=== PATIENT | female | born 1985 | race Native Hawaiian/Other Pacific Islander ===

== ENCOUNTER 2017-01-09 07:48 | Outpatient (CLI) | payer BC ==
[2017-01-09 09:06] LABS: HIV-1 Antigen p24 Non React (Non React); HIVR-1/2 Ab Non React (Non React)
== END 2017-01-09 07:49 | disposition home or self-care (01) ==
LOC: LAB 07:48
PROVIDERS: ATTEND Obstetrics & Gynecology
DX: Z11.3 Encounter for screening for infections with a predominantly sexual mode of transmission (principal); E66.9 Obesity, unspecified; E28.2 Polycystic ovarian syndrome
CPT/HCPCS: 36415; 80061; 83036; 86592; 86706; 86803; 87806

== ENCOUNTER 2018-03-09 07:54 | Outpatient (CLI) | payer BC, MEDICAID ==
[2018-03-09 09:42] LABS: Hepatitis B Surface Antigen Non-Reactive (Negative); Hepatitis C Virus Antibody Non-Reactive (NonReactive)
[2018-03-09 09:43] LABS: Hepatitis B Core IgM Non-Reactive (NonReactive)
[2018-03-11 07:44] LABS: Hepatitis A Antibody IgM NonReactive (NonReactive)
== END 2018-03-09 07:55 | disposition home or self-care (01) ==
LOC: LAB 07:54
PROVIDERS: ATTEND Obstetrics & Gynecology
DX: Z01.419 Encounter for gynecological examination (general) (routine) without abnormal findings (principal); A64 Unspecified sexually transmitted disease
CPT/HCPCS: 36415; 80074; 86592; 87086; 87529; 87806

== ENCOUNTER 2019-04-26 06:22 | Outpatient (CLI) | payer BC ==
[2019-04-26 14:24] LABS: Hepatitis C Virus Antibody Non-Reactive (NonReactive)
[2019-05-03 05:58] LABS: HIV-1 Antibody Differentiation SEE SCANNED RESULT; HIV-2 Antibody Differentiation SEE SCANNED RESULT
== END 2019-04-26 06:23 | disposition home or self-care (01) ==
LOC: LAB 06:22
PROVIDERS: ATTEND Nurse Practitioner Women's Health
DX: Z11.3 Encounter for screening for infections with a predominantly sexual mode of transmission (principal)
CPT/HCPCS: 36415; 86592; 86689; 86706; 86803

== ENCOUNTER 2019-08-11 17:05 | Inpatient (IN) | payer BC ==
--- NOTE | 2019-08-11 17:19 | Emergency Department Report ---
Blank Doc - Documentation Documentation: 34-year-old female that presents with abdominal pain in the epigastric. This initial assessment/diagnostic orders/clinical plan/treatment(s) is/are subject to change based on patient's health status, clinical progression and re- assessment by fellow clinical providers in the ED. Further treatment and workup at subsequent clinical providers discretion. Patient/guardians urged not to elope from the ED as their condition may be serious if not clinically assessed and managed. Initial orders include: 1- Patient sent to [facility] for further evaluation and treatment 2- labs 3- UA
[2019-08-11 17:44] LABS: Basophils # (Auto) 0.1 K/mm3 (0.0-0.1); Basophils % (Auto) 0.6 % (0.0-1.8); Eosinophils # (Auto) 0.1 K/mm3 (0.0-0.4); Eosinophils % (Auto) 0.7 % (0.0-4.3); Hematocrit 43.7 % (30.3-42.9); Hemoglobin 14.4 gm/dl (10.1-14.3); Lymphocytes # (Auto) 2.4 K/mm3 (1.2-5.4); Lymphocytes % (Auto) 18.5 % (13.4-35.0); Mean Corpuscular HGB Conc 33 % (30-34); Mean Corpuscular Volume 90 fl (79-97); Monocytes # (Auto) 0.7 K/mm3 (0.0-0.8); Monocytes % (Auto) 5.4 % (0.0-7.3); Platelet Count 238 K/mm3 (140-440); Red Blood Count 4.87 M/mm3 (3.65-5.03); Red Cell Distribution Width 13.6 % (13.2-15.2)
[2019-08-11 18:05] LABS: Alanine Aminotransferase 9 units/L (7-56); Albumin 4.9 g/dL (3.9-5); BUN/Creatinine Ratio 12; Blood Urea Nitrogen 7 mg/dL (7-17); Calcium 9.8 mg/dL (8.4-10.2); Hemolysis Index 5
[2019-08-11] MEDS ORDERED: ONDANSETRON 4 MG/2 ML INJ IV ONE (18:14)
[2019-08-11] MEDS ORDERED: MORPHINE 4 MG/1 ML INJ IV ONE ×2 (18:14→21:34)
[2019-08-11] MEDS ORDERED: SODIUM CHLORIDE 0.9% 1000 ML 1,000 ML IV ONE (18:14)
--- NOTE | 2019-08-11 19:22 | Cat Scan Report ---
CT ABDOMEN AND PELVIS WITH CONTRAST INDICATION: Epigastric pain with nausea and leukocytosis. COMPARISON: No relevant prior imaging study available. TECHNIQUE: Axial, coronal and sagittal CT imaging of the abdomen and pelvis was performed after inje ction of 100 cc Omnipaque [address] scans at this location are performed using CT dose re duction for ALARA by means of automated exposure control. FINDINGS: LOWER CHEST: No significant abnormality. LIVER: No significant abnormality. BILIARY: No significant abnormality. PANCREAS: No significant abnormality. SPLEEN: No significant abnormality. ADRENALS: No significant abnormality. KIDNEYS AND URETERS: No significant abnormality. GI TRACT: There is moderate distention of the stomach by fluid without an additional distinct abnorma lity. The distal small bowel is mildly dilated and fluid-filled without thickening or surrounding inf lammation. No significant abnormality of the colon. Unremarkable appendix. PERITONEUM: Trace amount of free fluid along the pelvis. No free air. No fluid collection. LYMPH NODES: No significant adenopathy. VASCULATURE: No significant abnormality. URINARY BLADDER: No significant abnormality. REPRODUCTIVE ORGANS: No significant abnormality. ADDITIONAL FINDINGS: None. SKELETAL SYSTEM: No significant abnormality. IMPRESSION: 1. Nonspecific moderate distention of the stomach may represent gastric outlet obstruction, possibly from a stricture or other functional abnormality. No distinct mass is identified. An upper GI series and/or endoscopy may be helpful for further evaluation. 2. Possible enteritis without an associated complications. Signer Name: Jake Zamorano MD Signed: 08/11/2019 7:18 PM Workstation Name: [id number]
--- NOTE | 2019-08-11 19:57 | Emergency Department Report ---
ED Abdominal Pain HPI - General Chief Complaint: Abdominal Pain Stated Complaint: ABD PAIN Time Seen by Provider: 08/11/19 17:17 Source: patient Mode of arrival: Ambulatory Limitations: No Limitations - History of Present Illness Initial Comments: Patient is a 34-year-old female presents emergency room with complaints of epigastric abdominal pain that began suddenly at 2 PM today. She has associated nausea. She denies ever having this in the past. She denies any history of gallstones. She denies any vomiting, diarrhea, urinary symptoms, fever. She denies any past medical history. She denies any allergies to medications. She states that her menstrual cycle was 3 weeks ago. Severity scale (0 -10): 10 - Related Data Home Medications Medication Instructions Recorded Confirmed Last Taken Norethindrone-E.estradiol-Iron [Lo 1 each PO QDAY 08/08/15 08/08/15 08/07/15 18:00 Loestrin Fe 1-10 Tablet] Previous Rx's Medication Instructions Recorded Last Taken Type Ciprofloxacin HCl [Ciprofloxacin 500 mg PO Q12HR #28 tab 08/08/15 Unknown Rx TAB] Ibuprofen [Motrin 800 MG tab] 800 mg PO Q8HR PRN #30 tablet 08/08/15 Unknown Rx Allergies Allergy/AdvReac Type Severity Reaction Status Date / Time No Known Allergies Allergy Verified 08/08/15 09:23 ED Review of Systems ROS: Stated complaint: ABD PAIN Other details as noted in HPI Comment: All other systems reviewed and negative ED Past Medical Hx - Past Medical History Hx Hypertension: No Hx Congestive Heart Failure: No Hx Diabetes: No Hx Deep Vein Thrombosis: No Hx Renal Disease: No Hx Sickle Cell Disease: No Hx Seizures: No Hx Asthma: No Hx COPD: No Hx HIV: No Additional medical history: ANEMIA WITH - Surgical History Past Surgical History?: No - Social History Smoking Status: Never Smoker Substance Use Type: None - Medications Home Medications: Home Medications Medication Instructions Recorded Confirmed Last Taken Type Ciprofloxacin HCl [Ciprofloxacin 500 mg PO Q12HR #28 tab 08/08/15 Unknown Rx TAB] Ibuprofen [Motrin 800 MG tab] 800 mg PO Q8HR PRN #30 tablet 08/08/15 Unknown Rx Norethindrone-E.estradiol-Iron [Lo 1 each PO QDAY 08/08/15 08/08/15 08/07/15 18:00 History Loestrin Fe 1-10 Tablet] ED Physical Exam - General Limitations: No Limitations General appearance: alert, other (appears to be in moderate distress secondary to pain) - Head Head exam: Present: atraumatic, normocephalic - Eye Eye exam: Present: normal appearance - ENT ENT exam: Present: mucous membranes moist - Respiratory Respiratory exam: Present: normal lung sounds bilaterally. Absent: respiratory distress, wheezes, rales, rhonchi, stridor, chest wall tenderness, accessory muscle use, decreased breath sounds, prolonged expiratory - Cardiovascular Cardiovascular Exam: Present: regular rate, normal rhythm, normal heart sounds. Absent: systolic murmur, diastolic murmur, rubs, gallop - GI/Abdominal GI/Abdominal exam: Present: soft, tenderness (epigastric), other (negative murphys sign, negative mcburneys point tenderness, no haro ma or cullens sign). Absent: distended, guarding, rebound, rigid - Back Exam Back exam: Absent: CVA tenderness (R), CVA tenderness (L) - Neurological Exam Neurological exam: Present: alert, oriented X3 - Psychiatric Psychiatric exam: Present: normal affect, normal mood - Skin Skin exam: Present: warm, dry, intact ED Course Vital Signs 08/11/19 08/11/19 17:17 18:45 Temperature 98.2 F Pulse Rate 104 H Respiratory 24 18 Rate Blood Pressure 128/80 - Consultations Consultation #1: 08/11/19 20:[address] Allen, GI regarding patient history and CT results, he advised if patient's pain was better and she was able to tolerate p.o. intake and can follow-up as an outpatient, he states that the patient was not able to tolerate p.o. intake and was not feeling better and can start patient on a PPI keep her n.p.o. and will see patient in the morning. 08/11/19 21:35 Patient given crackers and water and states that she felt like the pain was returning, patient given pain medications and PPI, discussed case with Dr. English, ER attending recommended doing cardiac enzyme and EKG and admit patient to hospitalist service 08/11/19 21:[address] Ac, hospitalist who will accept and resume care of patient will admit to the hospital ED Medical Decision Making - Lab Data Result diagrams: 08/11/19 17:27 08/11/19 17:27 Labs 08/11/19 08/11/19 08/11/19 17:27 17:27 17:27 WBC 13.0 H RBC 4.87 Hgb 14.4 H Hct 43.7 H MCV 90 MCH 30 MCHC 33 RDW 13.6 Plt Count 238 Lymph % (Auto) 18.5 [place] % (Auto) 5.4 Eos % (Auto) 0.7 Baso % (Auto) 0.6 Lymph # 2.4 [place] # 0.7 Eos # 0.1 Baso # 0.1 Seg Neutrophils % 74.8 H Seg Neutrophils # 9.7 H Sodium 136 L Potassium 3.7 Chloride 95.8 L Carbon Dioxide 21 L Anion Gap 23 BUN 7 Creatinine 0.6 L Estimated GFR > 60 BUN/Creatinine Ratio 12 Glucose 112 H Calcium 9.8 Total Bilirubin 0.30 AST 16 ALT 9 Alkaline Phosphatase 63 Troponin T Total Protein 8.1 Albumin 4.9 Albumin/Globulin Ratio 1.5 Lipase 19 HCG, Qual Negative Urine Color Urine Turbidity Urine pH Ur Specific [place] Urine Protein Urine Glucose (UA) Urine Ketones Urine Blood Urine Nitrite Urine Bilirubin Urine Urobilinogen Ur Leukocyte Esterase Urine WBC (Auto) Urine RBC (Auto) U Epithel Cells (Auto) Urine Bacteria (Auto) Urine Mucus 08/11/19 08/11/19 19:47 21:35 WBC RBC Hgb Hct MCV MCH MCHC RDW Plt Count Lymph % (Auto) [place] % (Auto) Eos % (Auto) Baso % (Auto) Lymph # [place] # Eos # Baso # Seg Neutrophils % Seg Neutrophils # Sodium Potassium Chloride Carbon Dioxide Anion Gap BUN Creatinine Estimated GFR BUN/Creatinine Ratio Glucose Calcium Total Bilirubin AST ALT Alkaline Phosphatase Troponin T < 0.010 Total Protein Albumin Albumin/Globulin Ratio Lipase HCG, Qual Urine Color Yellow Urine Turbidity Clear Urine pH 6.0 Ur Specific [place] 1.016 Urine Protein <15 mg/dl Urine Glucose (UA) Neg Urine Ketones 20 Urine Blood Neg Urine Nitrite Neg Urine Bilirubin Neg Urine Urobilinogen < 2.0 Ur Leukocyte Esterase Neg Urine WBC (Auto) 2.0 Urine RBC (Auto) 2.0 U Epithel Cells (Auto) 7.0 Urine Bacteria (Auto) 1+ Urine Mucus 1+ - EKG Data EKG shows normal: sinus rhythm, axis, intervals, QRS complexes, ST-T waves Rate: normal - EKG Data 08/11/19 23:55 no STEMI - Radiology Data Radiology results: report reviewed CT ABDOMEN AND PELVIS WITH CONTRAST INDICATION: Epigastric pain with nausea and leukocytosis. COMPARISON: No relevant prior imaging study available. TECHNIQUE: Axial, coronal and sagittal CT imaging of the abdomen and pelvis was performed after injection of 100 cc Omnipaque [address] scans at this location are performed using CT dose reduction for ALARA by means of automated exposure control. FINDINGS: LOWER CHEST: No significant abnormality. LIVER: No significant abnormality. BILIARY: No significant abnormality. PANCREAS: No significant abnormality. SPLEEN: No significant abnormality. ADRENALS: No significant abnormality. KIDNEYS AND URETERS: No significant abnormality. GI TRACT: There is moderate distention of the stomach by fluid without an additional distinct abnormality. The distal small bowel is mildly dilated and fluid-filled without thickening or surrounding inflammation. No significant abnormality of the colon. Unremarkable appendix. PERITONEUM: Trace amount of free fluid along the pelvis. No free air. No fluid collection. LYMPH NODES: No significant adenopathy. VASCULATURE: No significant abnormality. URINARY BLADDER: No significant abnormality. REPRODUCTIVE ORGANS: No significant abnormality. ADDITIONAL FINDINGS: None. SKELETAL SYSTEM: No significant abnormality. IMPRESSION: 1. Nonspecific moderate distention of the stomach may represent gastric outlet obstruction, possibly from a stricture or other functional abnormality. No distinct mass is identified. An upper GI series and/or endoscopy may be helpful for further evaluation. 2. Possible enteritis without an associated complications. Signer Name: Jake Zamorano MD Signed: 08/11/2019 7:18 PM Workstation Name: [id number] Transcribed By: [place] Dictated By: Jake Zamorano MD Electronically Authenticated By: Jake Zamorano MD Signed Date/Time: 08/11/191917 DD/ 13 TD/TT: - Medical Decision Making Patient is a 34-year-old female presents emergency room with complaints of epiga stric abdominal pain that began suddenly at 2 PM today. She has associated nausea. She denies ever having this in the past. She denies any history of gallstones. She denies any vomiting, diarrhea, urinary symptoms, fever. She denies any past medical history. She denies any allergies to medications. She states that her menstrual cycle was 3 weeks ago. Vitals with mild tachycardia otherwise normal. On exam patient has epigastric tenderness to palpation, no guarding, no rebound, negative Emery sign, no McBurney's point tenderness, negative Haro Ma's and [place] sign. Labs significant for elevated white blood cell count at 13,000 and very mild dehydration, negative troponin, EKG WN L. CT abd pelvis: 1. Nonspecific moderate distention of the stomach may represent gastric outlet obstruction, possibly from a stricture or other functional abnormality. No distinct mass is identified. An upper GI series and/or endoscopy may be helpful for further evaluation. 2. Possible enteritis w ithout an associated complications. Patient given 1 L IV fluids, morphine, Zofran. spoke to Dr. Allen, GI regarding patient history and CT results, he advised if patient's pain was better and she was able to tolerate p.o. intake and can follow-up as an outpatient, he states that the patient was not able to tolerate p.o. intake and was not feeling better and can start patient on a PPI keep her n.p.o. and will see patient in the morning. Patient given crackers and water and states that she felt like the pain was returning, patient given pain medications and PPI, discussed case with Dr. English, ER attending recommended doing cardiac enzyme and EKG and admit patient to hospitalist service. spoke to Dr. Ac, hospitalist who will accept and resume care of patient will admit to the hospital - Differential Diagnosis Cholelithiasis, cholecystitis, pancreatitis, SBO, gastritis, PUD, mass Critical care attestation.: If time is entered above; I have spent that time in minutes in the direct care of this critically ill patient, excluding procedure time. ED Disposition Clinical Impression: Acute distention of stomach Abdominal pain Qualifiers: Abdominal location: epigastric Qualified Code(s): R10.13 - Epigastric pain Leukocytosis Qualifiers: Leukocytosis type: unspecified Qualified Code(s): D72.829 - Elevated white blood cell count, unspecified Disposition: OP ADMIT IP TO THIS HOSP Is pt being admited?: Yes Does the pt Need Aspirin: No Condition: Fair Time of Disposition: 21:39
[2019-08-11 20:08] LABS: Bacteria,Urine 1+ /HPF (Negative); Bilirubin,Urine NEG (Negative); Blood,Urine NEG (Negative); Color,Urine Yellow (Yellow); Mucus,Urine 1+ /HPF; Protein,Urine <15 mg/dL mg/dL (Negative); Urobilinogen,Urine < 2.0 mg/dL (<2.0)
[2019-08-11] MEDS ORDERED: PANTOPRAZOLE 40 MG INJ IV ONE (21:34)
[2019-08-11] MEDS ORDERED: METOCLOPRAMIDE 10 MG/2 ML INJ IV PRN (22:15)
[2019-08-11] MEDS ORDERED: ACETAMINOPHEN 325 MG TAB PO PRN (22:15)
[2019-08-11] MEDS ORDERED: MORPHINE 2 MG/1 ML INJ IV PRN (22:15)
[2019-08-11] MEDS ORDERED: ONDANSETRON 4 MG/2 ML INJ IV PRN (22:15)
--- NOTE | 2019-08-11 22:21 | History and Physical Report ---
History of Present Illness History of present illness: 34-year-old male with no medical problem comes emergency room with complaints of abdominal pain that started today. Pain is in the epigastric area which he describes as a sharp pain, constant, intensity 6/10, no radiation, cannot identify exacerbating factor, relieved with morphine given in the emergency room. Admits to nausea, no vomiting, no fever or chills. Imaging study shows moderate distention of the stomach for which the patient will be admitted for Review Of Systems: Constitutional: no weight loss, fever, chills Ears, eyes, nose, mouth and throat: no nasal congestion, no nasal discharge, no sinus pressure, blurry vision, diplopia Neck: No neck pain or rigidity. Cardiovascular: No palpitations, chest pain Respiratory: No shortness of breath, cough Gastrointestinal: No hematochezia Genitourinary : no dysuria, frequency Musculoskeletal: no muscle ache , joint pain Integumentary: no rash, no pruritis Neurological: no parathesias, focal weakness Endocrine: no cold or heat intolerance, no polyuria or polydipsia Hematologic/Lymphatic: no easy bruising, no easy bleeding, no gland swelling Allergic/Immunologic: no urticaria, no angioedema. M PAST MEDICAL HISTORY: None PAST SURGICAL HISTORY:None SOCIAL HISTORY: Denies alcohol, tobacco, drugs FAMILY HISTORY: Hypertension Medications and Allergies Allergies Allergy/AdvReac Type Severity Reaction Status Date / Time No Known Allergies Allergy Verified 08/08/15 09:23 Home Medications Medication Instructions Recorded Confirmed Last Taken Type Ciprofloxacin HCl [Ciprofloxacin 500 mg PO Q12HR #28 tab 08/08/15 Unknown Rx TAB] Ibuprofen [Motrin 800 MG tab] 800 mg PO Q8HR PRN #30 tablet 08/08/15 Unknown Rx Norethindrone-E.estradiol-Iron [Lo 1 each PO QDAY 08/08/15 08/08/15 08/07/15 18:00 History Loestrin Fe 1-10 Tablet] Exam - Physical Exam Narrative exam: Gen. appearance: Patient lying in bed, no apparent distress HEENT: Normocephalic, atraumatic, pupils equally round and reactive to light, extraocular movement intact, and no sclericterus,. No JVD or thyromegaly or nodule,neck supple, no carotid bruit ,mucous membranes moist, no exudate or erythema Heart: S1, S2, regular rate and rhythm Lungs: Clear bilaterally, breathing comfortable Abdomen: Positive bowel sounds, nontender, nondistended, no organomegaly Extremity: no edema, cyanosis, clubbing Skin: No rash, nodules, warm, dry Neuro: Cranial nerves II to XII intact speech is fluent, moves extremities, sensory intact - Constitutional Vitals: Temp Pulse Resp BP Pulse Ox 98.2 F 104 H 18 128/80 08/11/19 17:17 08/11/19 17:17 08/11/19 18:45 08/11/19 17:17 Results - Labs CBC & Chem 7: 08/11/19 17:27 08/11/19 17:27 Labs: Abnormal lab results 08/11/19 08/11/19 Range/Units 17:27 17:27 WBC 13.0 H (4.5-11.0) K/mm3 Hgb 14.4 H (10.1-14.3) gm/dl Hct 43.7 H (30.3-42.9) % Seg Neutrophils % 74.8 H (40.0-70.0) % Seg Neutrophils # 9.7 H (1.8-7.7) K/mm3 Sodium 136 L (137-145) mmol/L Chloride 95.8 L (98-107) mmol/L Carbon Dioxide 21 L (22-30) mmol/L Creatinine 0.6 L (0.7-1.2) mg/dL Glucose 112 H (65-100) mg/dL - Imaging and Cardiology EKG: image reviewed CT scan - abdomen: report reviewed CT scan - pelvis: report reviewed Assessment and Plan Assessment Moderate distention of the stomach Admit to medicine, n.p.o., GI was consulted to see the patient Start IV fluid, Protonix, morphine, DVT prophylaxis Stress-induced leukocytosis, observe
[2019-08-12] MEDS: SODIUM CHLORIDE 0.9% 1000 ML 1,000 ML IV SCH (03:20)
[2019-08-12 07:49] LABS: Basophils % (Auto) 0.4 % (0.0-1.8); Eosinophils # (Auto) 0.1 K/mm3 (0.0-0.4); Eosinophils % (Auto) 1.6 % (0.0-4.3); Hematocrit 37.9 % (30.3-42.9); Hemoglobin 12.8 gm/dl (10.1-14.3); Lymphocytes # (Auto) 2.5 K/mm3 (1.2-5.4); Lymphocytes % (Auto) 31.4 % (13.4-35.0); Mean Corpuscular HGB Conc 34 % (30-34); Mean Corpuscular Volume 89 fl (79-97); Monocytes # (Auto) 0.6 K/mm3 (0.0-0.8); Monocytes % (Auto) 7.1 % (0.0-7.3); Platelet Count 199 K/mm3 (140-440); Red Blood Count 4.28 M/mm3 (3.65-5.03); Red Cell Distribution Width 13.6 % (13.2-15.2)
[2019-08-12 08:07] LABS: BUN/Creatinine Ratio 8; Blood Urea Nitrogen 5 mg/dL (7-17); Calcium 8.4 mg/dL (8.4-10.2); Hemolysis Index 1
--- NOTE | 2019-08-12 09:20 | Gastroenterology Consultation ---
History of Present Illness - Reason for Consult Consult date: 08/12/19 abd pain/distention Requesting physician: AMISHA RUSHING - History of Present Illness Patient is a 34 y/o female with no significant PMH who presented to ED with c/o acute onset of epigastric pain with nausea. Upon admission, abd CT showed possible GOO to which GI has been consulted. This morning patient was resting in bed w/o acute distress. Reports feeling better. Denies fever, CP, SOB, wt loss, vomiting, signs of bleeding, diarrhea, or constipation. Last BM yesterday with loose non-bloody stool. No hx of similar symptoms. No known ill contacts. Takes Ibuprofen rarely at home. No hx of PUD or prior EGD. No Fhx of GI cancers. Past History Past Medical History: other (anemia with ) Past Surgical History: No surgical history Social history: denies: smoking, alcohol abuse Family history: hypertension Medications and Allergies Allergies Allergy/AdvReac Type Severity Reaction Status Date / Time No Known Allergies Allergy Verified 08/08/15 09:23 Home Medications Medication Instructions Recorded Confirmed Last Taken Type Ciprofloxacin HCl [Ciprofloxacin 500 mg PO Q12HR #28 tab 08/08/15 Unknown Rx TAB] Ibuprofen [Motrin 800 MG tab] 800 mg PO Q8HR PRN #30 tablet 08/08/15 Unknown Rx Norethindrone-E.estradiol-Iron [Lo 1 each PO QDAY 08/08/15 08/12/19 1 Day Ago History Loestrin Fe 1-10 Tablet] ~08/11/19 Active Meds: Active Medications Acetaminophen (Tylenol) 650 mg PO Q4H PRN PRN Reason: Pain MILD(1-3)/Fever >100.5/SAUNDERS Enoxaparin Sodium (Enoxaparin) 40 mg SUB-Q QDAY@1000 ANDRADE Sodium Chloride (Nacl 0.9% 1000 Ml) 1,000 mls @ 100 mls/hr IV DIRECT ANDRADE Last Admin: 08/12/19 03:20 Dose: 100 mls/hr Documented by: Metoclopramide HCl (Reglan) 10 mg IV Q6H PRN PRN Reason: Nausea And Vomiting Morphine Sulfate (Morphine) 2 mg IV Q4H PRN PRN Reason: Pain, Moderate (4-6) Ondansetron HCl (Zofran) 4 mg IV Q4H PRN PRN Reason: Nausea And Vomiting Pantoprazole Sodium (Protonix) 40 mg IV QDAY ANDRADE Sodium Chloride (Sodium Chloride Flush Syringe 10 Ml) 10 ml IV BID ANDRADE Sodium Chloride (Sodium Chloride Flush Syringe 10 Ml) 10 ml IV PRN PRN PRN Reason: LINE FLUSH medications reviewed/updated as required Review of Systems - Review of Systems All systems: negative Gastrointestinal: abdominal pain (epigastric pain), nausea Exam - Constitutional Vital Signs: Temp Pulse Resp BP Pulse Ox 98.3 F 59 L 16 89/44 99 08/12/19 05:44 08/12/19 05:44 08/12/19 05:44 08/12/19 05:44 08/12/19 05:44 General appearance: no acute distress - EENT Eyes: PERRL, EOM intact ENT: hearing intact - Respiratory Respiratory effort: normal Respiratory: bilateral: CTA - Cardiovascular Rhythm: regular - Gastrointestinal General gastrointestinal: Present: soft, non-tender, non-distended, normal bowel sounds - Integumentary Integumentary: Present: warm, dry - Neurologic Neurological: alert and oriented x3 - Labs CBC & Chem 7: 08/12/19 07:32 08/12/19 07:32 Lab Results: Laboratory Results - last 24 hr 08/11/19 08/11/19 08/11/19 17:27 17:27 17:27 WBC 13.0 H RBC 4.87 Hgb 14.4 H Hct 43.7 H MCV 90 MCH 30 MCHC 33 RDW 13.6 Plt Count 238 Lymph % (Auto) 18.5 [place] % (Auto) 5.4 Eos % (Auto) 0.7 Baso % (Auto) 0.6 Lymph # 2.4 [place] # 0.7 Eos # 0.1 Baso # 0.1 Seg Neutrophils % 74.8 H Seg Neutrophils # 9.7 H Sodium 136 L Potassium 3.7 Chloride 95.8 L Carbon Dioxide 21 L Anion Gap 23 BUN 7 Creatinine 0.6 L Estimated GFR > 60 BUN/Creatinine Ratio 12 Glucose 112 H Calcium 9.8 Total Bilirubin 0.30 AST 16 ALT 9 Alkaline Phosphatase 63 Troponin T Total Protein 8.1 Albumin 4.9 Albumin/Globulin Ratio 1.5 Lipase 19 HCG, Qual Negative Urine Color Urine Turbidity Urine pH Ur Specific [place] Urine Protein Urine Glucose (UA) Urine Ketones Urine Blood Urine Nitrite Urine Bilirubin Urine Urobilinogen Ur Leukocyte Esterase Urine WBC (Auto) Urine RBC (Auto) U Epithel Cells (Auto) Urine Bacteria (Auto) Urine Mucus 08/11/19 08/11/19 08/12/19 19:47 21:35 07:32 WBC 7.9 RBC 4.28 Hgb 12.8 Hct 37.9 MCV 89 MCH 30 MCHC 34 RDW 13.6 Plt Count 199 Lymph % (Auto) 31.4 [place] % (Auto) 7.1 Eos % (Auto) 1.6 Baso % (Auto) 0.4 Lymph # 2.5 [place] # 0.6 Eos # 0.1 Baso # 0.0 Seg Neutrophils % 59.5 Seg Neutrophils # 4.7 Sodium Potassium Chloride Carbon Dioxide Anion Gap BUN Creatinine Estimated GFR BUN/Creatinine Ratio Glucose Calcium Total Bilirubin AST ALT Alkaline Phosphatase Troponin T < 0.010 Total Protein Albumin Albumin/Globulin Ratio Lipase HCG, Qual Urine Color Yellow Urine Turbidity Clear Urine pH 6.0 Ur Specific [place] 1.016 Urine Protein <15 mg/dl Urine Glucose (UA) Neg Urine Ketones 20 Urine Blood Neg Urine Nitrite Neg Urine Bilirubin Neg Urine Urobilinogen < 2.0 Ur Leukocyte Esterase Neg Urine WBC (Auto) 2.0 Urine RBC (Auto) 2.0 U Epithel Cells (Auto) 7.0 Urine Bacteria (Auto) 1+ Urine Mucus 1+ 08/12/19 07:32 WBC RBC Hgb Hct MCV MCH MCHC RDW Plt Count Lymph % (Auto) [place] % (Auto) Eos % (Auto) Baso % (Auto) Lymph # [place] # Eos # Baso # Seg Neutrophils % Seg Neutrophils # Sodium 141 Potassium 4.1 Chloride 106.0 Carbon Dioxide 22 Anion Gap 17 BUN 5 L Creatinine 0.6 L Estimated GFR > 60 BUN/Creatinine Ratio 8 Glucose 83 Calcium 8.4 Total Bilirubin AST ALT Alkaline Phosphatase Troponin T Total Protein Albumin Albumin/Globulin Ratio Lipase HCG, Qual Urine Color Urine Turbidity Urine pH Ur Specific [place] Urine Protein Urine Glucose (UA) Urine Ketones Urine Blood Urine Nitrite Urine Bilirubin Urine Urobilinogen Ur Leukocyte Esterase Urine WBC (Auto) Urine RBC (Auto) U Epithel Cells (Auto) Urine Bacteria (Auto) Urine Mucus Assessment and Plan 1.epigastric pain 2.nausea 3.abnormal CT/GOO? -afebrile -WBC now WNL (13.0 on admission) -H/H, plt, LFTs, and lipase WNL -abd CT showed moderate distension of the stomach which could represent gastric outlet obstruction but no obvious mass -etiology- 2/2 possible acute viral/infectious process vs PUD vs other -clinically, patient reports feeling better with abd pain improving. Has nausea but no vomiting or signs of bleeding. Abdomen benign upon exam. -EGD for further evaluation once acute process has improved, if symptoms resolve with conservative management and able to tolerate PO, can be done as outpatient -Keep NPO for now except ice chips -if vomiting develops, recommend NGT to [facility] -KUB in am -PPI -empiric antibiotics -avoid NSAIDs -supportive care -will follow
[2019-08-12] MEDS ORDERED: ENOXAPARIN 30 MG/0.3 ML INJ SUB-Q SCH (10:00)
[2019-08-12] MEDS ORDERED: PANTOPRAZOLE 40 MG INJ IV SCH (10:00)
[2019-08-12] MEDS: ENOXAPARIN 40 MG/0.4 ML INJ SUB-Q SCH (10:22)
--- NOTE | 2019-08-12 19:55 | Progress Note ---
Assessment and Plan - Patient Problems (1) Abdominal pain Current Visit: Yes Status: Acute Qualifiers: Abdominal location: epigastric Qualified Code(s): R10.13 - Epigastric pain Plan to address problem: Abdominal pain. Patient CT scan showed questionable gastric outlet obstruction. Patient did have loose stool no pain. Patient had no fever at this particular time no bleeding. Abdomen benign with palpation on physical exam. Agree most likely viral illness. Bowel rest today ice chips would begin clear liquid diet if she tolerates. Follow-up in a.m. (2) Leukocytosis Current Visit: Yes Status: Acute Qualifiers: Leukocytosis type: unspecified Qualified Code(s): D72.829 - Elevated white blood cell count, unspecified Plan to address problem: Leukocytosis has resolved could have been secondary to acute viral gastroenteritis. History Interval history: Patient this a.m. states she feels better. Patient no longer has any abdominal pain. We will see how she responds to a clear liquid diet and titrate accordingly. Spoke with GI and patient at this time does not need EGD. Hospitalist Physical - Constitutional Vitals: Temp Pulse Resp BP Pulse Ox 99.3 F 82 19 118/58 97 08/12/19 17:09 08/12/19 17:09 08/12/19 17:09 08/12/19 17:09 08/12/19 17:09 General appearance: Present: no acute distress - EENT Eyes: Present: PERRL, EOM intact ENT: hearing intact, clear oral mucosa, dentition normal - Neck Neck: Present: supple, normal ROM - Respiratory Respiratory: bilateral: CTA - Cardiovascular Rhythm: regular - Extremities Extremities: no ischemia, pulses intact, pulses symmetrical, No edema, normal temperature, normal color Peripheral Pulses: within normal limits - Abdominal General gastrointestinal: soft, non-tender, non-distended, normal bowel sounds, no hepatomegaly, no splenomegaly, no mass - Integumentary Integumentary: Present: clear, warm, dry - Psychiatric Psychiatric: appropriate mood/affect, intact judgment & insight, memory intact - Neurologic Neurologic: CNII-XII intact, moves all extremities Results - Labs CBC & Chem 7: 08/12/19 07:32 08/12/19 07:32 Labs: Laboratory Last Values WBC 7.9 K/mm3 (4.5-11.0) 08/12/19 07:32 RBC 4.28 M/mm3 (3.65-5.03) 08/12/19 07:32 Hgb 12.8 gm/dl (10.1-14.3) 08/12/19 07:32 Hct 37.9 % (30.3-42.9) 08/12/19 07:32 MCV 89 fl (79-97) 08/12/19 07:32 MCH 30 pg (28-32) 08/12/19 07: MCHC 34 % (30-34) 08/12/19 07:32 RDW 13.6 % (13.2-15.2) 08/12/19 07:32 Plt Count 199 K/mm3 (140-440) 08/12/19 07:32 Lymph % (Auto) 31.4 % (13.4-35.0) 08/12/19 07:32 Coke % (Auto) 7.1 % (0.0-7.3) 08/12/19 07:32 Eos % (Auto) 1.6 % (0.0-4.3) 08/12/19 07:32 Baso % (Auto) 0.4 % (0.0-1.8) 08/12/19 07:32 Lymph # 2.5 K/mm3 (1.2-5.4) 08/12/19 07:32 Coke # 0.6 K/mm3 (0.0-0.8) 08/12/19 07:32 Eos # 0.1 K/mm3 (0.0-0.4) 08/12/19 07:32 Baso # 0.0 K/mm3 (0.0-0.1) 08/12/19 07:32 Seg Neutrophils % 59.5 % (40.0-70.0) 08/12/19 07:32 Seg Neutrophils # 4.7 K/mm3 (1.8-7.7) 08/12/19 07:32 Sodium 141 mmol/L (137-145) 08/12/19 07:32 Potassium 4.1 mmol/L (3.6-5.0) 08/12/19 07:32 Chloride 106.0 mmol/L (98-107) 08/12/19 07:32 Carbon Dioxide 22 mmol/L (22-30) 08/12/19 07:32 Anion Gap 17 mmol/L 08/12/19 07:32 BUN 5 mg/dL (7-17) L 08/12/19 07:32 Creatinine 0.6 mg/dL (0.7-1.2) L 08/12/19 07:32 Estimated GFR > 60 ml/min 08/12/19 07:32 BUN/Creatinine Ratio 8 % 08/12/19 07:32 Glucose 83 mg/dL (65-100) 08/12/19 07:32 Calcium 8.4 mg/dL (8.4-10.2) 08/12/19 07:32 Total Bilirubin 0.30 mg/dL (0.1-1.2) 08/11/19 17:27 AST 16 units/L (5-40) 08/11/19 17:27 ALT 9 units/L (7-56) 08/11/19 17:27 Alkaline Phosphatase 63 units/L (35-129) 08/11/19 17:27 Troponin T < 0.010 ng/mL (0.00-0.029) 08/11/19 21:35 Total Protein 8.1 g/dL (6.3-8.2) 08/11/19 17:27 Albumin 4.9 g/dL (3.9-5) 08/11/19 17:27 Albumin/Globulin Ratio 1.5 % 08/11/19 17:27 Lipase 19 units/L (13-60) 08/11/19 17:27 HCG, Qual Negative (Negative) 08/11/19 17:27 Urine Color Yellow (Yellow) 08/11/19 19:47 Urine Turbidity Clear (Clear) 08/11/19 19:47 Urine pH 6.0 (5.0-7.0) 08/11/19 19:47 Ur Specific Huntley 1.016 (1.003-1.030) 08/11/19 19:47 Urine Protein <15 mg/dl mg/dL (Negative) 08/11/19 19:47 Urine Glucose (UA) Neg mg/dL (Negative) 08/11/19 19:47 Urine Ketones 20 mg/dL (Negative) 08/11/19 19:47 Urine Blood Neg (Negative) 08/11/19 19:47 Urine Nitrite Neg (Negative) 08/11/19 19:47 Urine Bilirubin Neg (Negative) 08/11/19 19:47 Urine Urobilinogen < 2.0 mg/dL (<2.0) 08/11/19 19:47 Ur Leukocyte Esterase Neg (Negative) 08/11/19 19:47 Urine WBC (Auto) 2.0 /HPF (0.0-6.0) 08/11/19 19:47 Urine RBC (Auto) 2.0 /HPF (0.0-6.0) 08/11/19 19:47 U Epithel Cells (Auto) 7.0 /HPF (0-13.0) 08/11/19 19:47 Urine Bacteria (Auto) 1+ /HPF (Negative) 08/11/19 19:47 Urine Mucus 1+ /HPF 08/11/19 19:47 Alvarado/IV: Voiding Method Toilet IV Catheter Type [Left INT / Saline Lock Antecubital] Active Medications - Current Medications Current Medications: Generic Name Dose Route Start Last Admin Trade Name Freq PRN Reason Stop Dose Admin Acetaminophen 650 mg 08/11/19 22:15 08/12/19 13:39 Tylenol PO 650 mg Q4H PRN Administration Pain MILD(1-3)/Fever >100.5/SAUNDERS Enoxaparin Sodium 40 mg 08/12/19 10:00 08/12/19 10:22 Enoxaparin SUB-Q 40 mg QDAY@1000 ANDRADE Administration Sodium Chloride 1,000 mls @ 100 mls/hr 08/11/19 22:15 08/12/19 03:20 Nacl 0.9% 1000 Ml IV 100 mls/hr DIRECT ANDRADE Administration Metoclopramide HCl 10 mg 08/11/19 22:15 Reglan IV Q6H PRN Nausea And Vomiting Morphine Sulfate 2 mg 08/11/19 22:15 Morphine IV Q4H PRN Pain, Moderate (4-6) Ondansetron HCl 4 mg 08/11/19 22:15 Zofran IV Q4H PRN Nausea And Vomiting Pantoprazole Sodium 40 mg 08/12/19 22:00 Protonix IV BID ANDRADE Sodium Chloride 10 ml 08/12/19 10:00 08/12/19 10:29 Sodium Chloride Flush Syringe 10 Ml IV 10 ml BID ANDRADE Administration Sodium Chloride 10 ml 08/11/19 22:15 Sodium Chloride Flush Syringe 10 Ml IV PRN PRN LINE FLUSH
[2019-08-12] MEDS: PANTOPRAZOLE 40 MG INJ IV SCH (21:38)
[2019-08-13 05:53] VITALS: BP 93/61
[2019-08-13] MEDS: SODIUM CHLORIDE 0.9% 1000 ML 1,000 ML IV SCH (05:54)
[2019-08-13] MEDS: PANTOPRAZOLE 40 MG INJ IV SCH (09:00)
[2019-08-13] MEDS: ENOXAPARIN 40 MG/0.4 ML INJ SUB-Q SCH (09:00)
--- NOTE | 2019-08-13 09:23 | XRay Report ---
ABDOMEN 1 VIEW(S) INDICATION / CLINICAL INFORMATION: abdominal distention. COMPARISON: CT scan dated 08/11/2019 FINDINGS: TUBES / LINES: None. BOWEL GAS PATTERN/EXTRALUMINAL GAS: No significant abnormality. No pneumatosis or secondary signs of free air. ADDITIONAL FINDINGS: No significant additional findings. IMPRESSION: 1. No acute abnormality. Signer Name: Isaak Hoffman MD Signed: 08/13/2019 9:19 AM Workstation Name: [id number]
--- NOTE | 2019-08-13 10:18 | Discharge Summary ---
Providers - Providers Date of Admission: 08/11/19 22:15 Date of discharge: 08/13/19 Attending physician: RYDER AGUILAR 08/11/19 21:34 Consult to Physician [CONS] Stat Comment: Consulting Provider: DEVON DRAKE Physician Instructions: Reason For Exam: abd pain, gastric distension Primary care physician: DROSSER Hospitalization Condition: Fair Pertinent studies: CT scan abdomen showed nonspecific dilation questionable gastric outlet obstruction. KUB unremarkable. Hospital course: Patient 34-year-old healthy female presented with acute midepigastric abdominal pain. Upon ER evaluation CT scan showed possible gastric outlet obstruction. Patient the next day after having stool did not have any pain. No hematemesis no constipation no diarrhea. Abdominal pain resolved. Patient observed for 24 hours no nausea vomiting no return of abdominal pain. Clinical pattern was not consistent with gastric outlet obstruction. Patient stabilized can discharge home follow-up with Dr. Hao Newby 2 weeks if symptoms return. Disposition: - TO HOME OR SELFCARE - Discharge Diagnoses (1) Abdominal pain Status: Acute Qualifiers: Abdominal location: epigastric Qualified Code(s): R10.13 - Epigastric pain Comment: Most likely secondary to viral versus gastroenteritis. Patient symptoms have resolved pain resolved. Follow-up KUB unremarkable. No clinical symptoms of gastric outlet obstruction. Stable for discharge home. (2) Leukocytosis Status: Acute Qualifiers: Leukocytosis type: unspecified Qualified Code(s): D72.829 - Elevated white blood cell count, unspecified Core Measure Documentation - Palliative Care Palliative Care/ Comfort Measures: Not Applicable - Core Measures Any of the following diagnoses?: none Exam - Constitutional Vitals: Temp Pulse Resp BP Pulse Ox 98.3 F 79 20 93/61 97 08/13/19 05:32 08/13/19 05:32 08/13/19 05:32 08/13/19 05:32 08/13/19 05:32 General appearance: Present: no acute distress, well-nourished - EENT Eyes: Present: PERRL ENT: hearing intact, clear oral mucosa - Neck Neck: Present: supple, normal ROM - Respiratory Respiratory effort: normal Respiratory: bilateral: CTA - Cardiovascular Heart Sounds: Present: S1 & S2. Absent: rub, click - Extremities Extremities: pulses symmetrical, No edema Peripheral Pulses: within normal limits - Abdominal General gastrointestinal: Present: soft, non-tender, non-distended, normal bowel sounds Female genitourinary: Present: normal - Integumentary Integumentary: Present: clear, warm, dry - Musculoskeletal Musculoskeletal: gait normal, strength equal bilaterally - Psychiatric Psychiatric: appropriate mood/affect, intact judgment & insight - Neurologic Neurologic: CNII-XII intact, moves all extremities Plan Activity: no restrictions Diet: advance as tolerated Follow up with: DEVON DRAKE MD [Staff Physician] - 3-5 Days PRIMARY CAREMD [Primary Care Provider] - 3-5 Days
== END 2019-08-13 13:10 | disposition home or self-care (01) | DRG 392 ==
LOC: ED 17:05 → 3A 22:15
PROVIDERS: ADMIT Internal Medicine; ATTEND Internal Medicine
DX: A08.4 Viral intestinal infection, unspecified (principal); K31.0 Acute dilatation of stomach; D72.829 Elevated white blood cell count, unspecified; Z82.49 Family history of ischemic heart disease and other diseases of the circulatory system
CPT/HCPCS: 36415; 74018; 74177; 80048; 80053; 81001; 83690; 84484; 84703; 85025; 93005; 93010; 96361; 96374; 96375; G0378; C9113; J1650; J2270; J2405; J7030; Q9967